=== PATIENT | female | born 1940 | race Caucasian/White ===

== ENCOUNTER 2021-12-21 13:06 | Outpatient (CLI) | payer MEDICARE, BC, MEDICAID ==
[2021-12-21 15:29] LABS: #Eosinphils 0.1 10x3/uL (0.0-0.5); #Monocytes 0.4 10x3/uL (0.0-1.1); #Neutrophils 4.1 10x3/uL (1.5-8.4); %Basophils 0.6 % (0.0-2.0); %Eosinophils 2.1 % (0.0-6.0); %Lymphocytes 13.3 % (18.0-47.0); %Monocytes 6.7 % (0.0-10.0); %Neutrophils 76.7 % (40.0-75.0); Hemoglobin 10.9 g/dL (12.0-15.5); Mean Corpuscular HGB CONC 32.5 g/dL (32.0-36.0); Mean Corpuscular Hemoglobin 31.5 pg (27.0-33.0); Mean Corpuscular Volume 96.8 fl (81.6-98.3); Mean Platelet Volume 9.9 fl (7.4-10.4); Platelet Count 149 10x3/uL (150-450); RBC Distribution Width 13.3 % (11.5-14.5); Red Blood Cell (RBC) Count 3.46 10x6/uL (3.90-5.03); White Blood Cell (WBC) Count 5.4 10x3/uL (3.5-10.5)
[2021-12-21 15:31] LABS: PTT 24.8 sec (22.0-33.0); Prothrombin Time 10.9 sec (9.5-12.1)
[2021-12-21 15:32] LABS: Anion Gap 17 mmol/L (10-20); BUN (Urea Nitrogen) 30 mg/dL (9.8-20.1); Calc. Creatinine Clearance 0 mL/min (70-130); Calcium 9.9 mg/dL (7.8-10.44); Carbon Dioxide 23 mmol/L (23-31); Chloride 103 mmol/L (98-107); Glucose 97 mg/dL (83-110); Potassium 3.8 mmol/L (3.5-5.1); Sodium 139 mmol/L (136-145)
[2021-12-21 23:56] LABS: SARS-CoV-2 PCR by NAA Not Detected (NotDetected)
== END 2021-12-21 13:07 | disposition home or self-care (01) ==
LOC: CSHLAB 13:06
PROVIDERS: ATTEND Internal Medicine Cardiovascular Disease
DX: Z01.818 Encounter for other preprocedural examination (principal); Z20.822 Contact with and (suspected) exposure to COVID-19
CPT/HCPCS: 71046; 80048; 85025; 85610; 85730; 93005; 93010; U0003; U0005

== ENCOUNTER 2021-12-23 11:13 | Observation (INO) | payer MEDICARE, BC, MEDICAID ==
[2021-12-23] MEDS ORDERED: Lidocaine 1% MPF 2 ML VIAL ONE ×3 (12:05→13:55)
[2021-12-23] MEDS ORDERED: PHENYLEPHRINE-NS 100 MCG/ML 10 ML SYRINGE ONE (12:34)
[2021-12-23] MEDS ORDERED: Atropine Sulfate 0.4 mg/1 ml Vial ONE (12:34)
[2021-12-23] MEDS ORDERED: Midazolam HCl 2 mg/2 ml Vial ONE (12:38)
[2021-12-23] MEDS ORDERED: Fentanyl 100 MCG/2 ML VIAL ONE (12:38)
[2021-12-23] MEDS ORDERED: Lidocaine 2% PF 5 ML VIAL ONE (13:55)
[2021-12-23] MEDS ORDERED: hydrALAZINE 20 MG/ML VIAL ONE (14:27)
[2021-12-23] MEDS ORDERED: Acetaminophen/Codeine 30-300mg Tablet PO PRN ×2 (14:43)
[2021-12-23] MEDS ORDERED: Sodium Chloride 0.9% 200 ML IV PRN (14:43)
[2021-12-23] MEDS ORDERED: Nitroglycerin 0.4 MG TAB (25 Tab Bottle) SL PRN (14:43)
[2021-12-23] MEDS ORDERED: Mirtazapine 15 MG TAB PO SCH (21:00)
[2021-12-23] MEDS ORDERED: Doxepin HCl 25 MG CAP PO SCH (21:00)
[2021-12-23 21:10] LABS: Fluid, Protein 4.3 g/dL (Not Available)
[2021-12-23] MEDS: Metoprolol Tartrate 50 MG TAB PO SCH (21:36)
[2021-12-23] MEDS: busPIRone HCl 5 MG TAB PO SCH (21:36)
[2021-12-23] MEDS: Valproate Sodium 250 mg/5 ml UD Cup PO SCH (21:37)
[2021-12-24] MEDS: Acetaminophen 325 MG TAB PO PRN ×2 (00:03→06:00)
[2021-12-24] MEDS ORDERED: Amlodipine 10 MG TAB PO SCH (09:00)
[2021-12-24] MEDS ORDERED: Aspirin 81 mg Enteric Coated Tablet PO SCH (09:00)
[2021-12-24] MEDS ORDERED: Valsartan 80 MG TAB PO SCH (09:00)
[2021-12-24] MEDS ORDERED: Aripiprazole 10 MG TAB PO SCH (09:00)
[2021-12-24] MEDS ORDERED: Levothyroxine Sodium 25 MCG TAB PO SCH (09:00)
[2021-12-24] MEDS: Valproate Sodium 250 mg/5 ml UD Cup PO SCH (09:58)
[2021-12-24] MEDS: busPIRone HCl 5 MG TAB PO SCH ×2 (09:59→14:57)
[2021-12-24] MEDS: Metoprolol Tartrate 50 MG TAB PO SCH (09:59)
[2021-12-24 13:22] VITALS: BP 180/83; TEMP 97.2
[2021-12-24] MEDS ORDERED: hydrALAZINE 20 MG/ML VIAL SLOW IVP PRN (14:44)
== END 2021-12-24 15:15 | disposition short-term general hospital (02) ==
LOC: CSHSDC 11:13 → CSHTELE 17:59
PROVIDERS: ADMIT Internal Medicine Cardiovascular Disease; ATTEND Internal Medicine Cardiovascular Disease
DX: I31.3 Pericardial effusion (noninflammatory) (principal); I48.21 Permanent atrial fibrillation; I12.9 Hypertensive chronic kidney disease with stage 1 through stage 4 chronic kidney disease, or unspecified chronic kidney disease; N18.30 Chronic kidney disease, stage 3 unspecified; I25.10 Atherosclerotic heart disease of native coronary artery without angina pectoris; I35.0 Nonrheumatic aortic (valve) stenosis; G47.30 Sleep apnea, unspecified; E03.9 Hypothyroidism, unspecified; F31.9 Bipolar disorder, unspecified; I69.951 Hemiplegia and hemiparesis following unspecified cerebrovascular disease affecting right dominant side; Z87.891 Personal history of nicotine dependence; Z79.82 Long term (current) use of aspirin; Z79.899 Other long term (current) drug therapy
CPT/HCPCS: 33016; 71045; 82150; 83615; 84157; 87070; 87102; 87116; 87205; 87206; 93005; 93306 ×2; 96374; C1729; C1760; G0378 ×2; 88112; 88305; 93010; 99152; 99153; J0360; J0461; J2001; J2250; J3010

== ENCOUNTER 2022-02-09 15:31 | Emergency (ER) | payer MEDICARE, BC, MEDICAID ==
[~2022-02-09 15:31] MED LIST: Iopamidol 370 76% 100 ML VIAL ONE
[2022-02-09 17:59] LABS: ALT (SGPT) 30 U/L (8-55); AST (SGOT) 38 U/L (5-34); Alkaline Phosphatase 74 U/L (40-110); Anion Gap 16 mmol/L (10-20); BUN (Urea Nitrogen) 55 mg/dL (9.8-20.1); Bilirubin, Total 0.8 mg/dL (0.2-1.2); Calc. Creatinine Clearance 0 mL/min (70-130); Calcium 8.5 mg/dL (7.8-10.44); Carbon Dioxide 25 mmol/L (23-31); Chloride 93 mmol/L (98-107); Estimated GFR 23; Globulin 1.7 g/dL (2.4-3.5); Glucose 107 mg/dL (83-110); Potassium 4.5 mmol/L (3.5-5.1); Protein, Total 4.7 g/dL (5.8-8.1); Sodium 129 mmol/L (136-145)
[2022-02-09 18:20] LABS: CKMB 1.7 ng/mL (0-6.6)
[2022-02-09 18:54] LABS: SARS-CoV-2 NAA Rapid Test Not Detected (NotDetected)
[2022-02-09 19:29] LABS: #Monocytes 1.2 10x3/uL (0.0-1.1); #Neutrophils 9.2 10x3/uL (1.5-8.4); %Basophils 0.4 % (0.0-2.0); %Eosinophils 0.1 % (0.0-6.0); %Lymphocytes 4.5 % (18.0-47.0); %Monocytes 10.8 % (0.0-10.0); %Neutrophils 82.8 % (40.0-75.0); Mean Corpuscular HGB CONC 32.9 g/dL (32.0-36.0); Mean Corpuscular Hemoglobin 30.6 pg (27.0-33.0); Mean Platelet Volume 10.6 fl (7.4-10.4); Platelet Count 230 10x3/uL (150-450); RBC Distribution Width 17.3 % (11.5-14.5); Red Blood Cell (RBC) Count 3.27 10x6/uL (3.90-5.03); White Blood Cell (WBC) Count 11.2 10x3/uL (3.5-10.5)
[2022-02-09] MEDS ORDERED: Furosemide 40 MG/4 ML VIAL ONE (20:05)
[2022-02-10] MEDS ORDERED: Fentanyl 100 MCG/2 ML VIAL ONE (08:29)
== END 2022-02-09 22:29 | disposition short-term general hospital (02) ==
LOC: CSHERS 15:31
DX: J90 Pleural effusion, not elsewhere classified (principal); E78.5 Hyperlipidemia, unspecified; I10 Essential (primary) hypertension; Z20.822 Contact with and (suspected) exposure to COVID-19
CPT/HCPCS: 36415; 71045; 71275; 80053; 82553; 83880; 84484; 85025; 93005; J1940; U0002